=== PATIENT | female | born 1960 | race Asian ===

== ENCOUNTER 2017-08-20 18:12 | Observation (INO) | payer MEDICAID ==
[~2017-08-20] VITALS: Ht 152.4 cm; Wt 72.6 kg
--- NOTE | 2017-08-20 18:11 | Emergency Room Report ---
History of Present Illness General Source: Patient, EMS Present Illness HPI Patient's 56-year-old female brought in by EMS after increased dizziness and syncopal episode. Patient had feeling of lightheadedness. She denied any fever. She stated that she had been having some syncopal episode in the past few days. She stated that she has an appointment to see her primary care physician for similar symptoms. EKG by EMS showed incomplete right bundle branch block. Patient denied any chest pain or shortness of breath. She denied vomiting or diarrhea. She denied any change with standing. Patient had syncopal episodes well at a grocery store. She denied any trauma. Allergies: Coded Allergies: No Known Allergies (Unverified , 08/20/17) Patient History Past Medical History: see triage record Reviewed Nursing Documentation: PMH: Agreed, PSxH: Agreed Review of Systems All Other Systems: negative except mentioned in HPI Physical Exam Sp02 EP Interpretation: reviewed, normal General Appearance: normal inspection, well appearing, no apparent distress, alert, GCS 15, non-toxic Head: atraumatic ENT: normal ENT inspection, hearing grossly normal, normal voice Neck: normal inspection, full range of motion, supple, no bony tend Respiratory: normal inspection, lungs clear, normal breath sounds, no respiratory distress, no retraction, no wheezing Cardiovascular #1: regular rate, rhythm, no edema Gastrointestinal: normal inspection, normal bowel sounds, non tender, soft, no guarding, no hernia Genitourinary: no CVA tenderness Musculoskeletal: normal inspection, back normal, normal range of motion Neurologic: normal inspection, alert, oriented x3, responsive, senior computer specialist III-XII nml as tested, speech normal Psychiatric: normal inspection, judgement/insight normal, mood/affect normal Skin: normal inspection, normal color, no rash Medical Decision Making Diagnostic Impression: Primary Impression: Syncope Additional Impression: Incomplete RBBB ER Course Patient presented for syncope. Differential diagnosis included but was not limited to arrhythmia, orthostatic hypotension, hypovolemia, vasovagal, anemia among others.Because of complexity of patient's case laboratory testing and imaging studies were ordered. EKG interpreted by me showed normal sinus rhythm with a rate of 67 with incomplete right bundle-branch block with prolonged QT interval. Patient is also noted have a left anterior fascicular block. Patient is given IV magnesium as well as IV fluids. Laboratory testing was notable for mild hypokalemia. Patient was given oral potassium. Dr. Richard Ma was contacted for Dr. Rivera for inpatient observation Labs Test 08/20/17 18:24 08/20/17 19:00 White Blood Count 6.0 K/UL (4.8-10.8) Red Blood Count 4.20 M/UL (4.20-5.40) Hemoglobin 13.8 G/DL (12.0-16.0) Hematocrit 39.7 % (37.0-47.0) Mean Corpuscular Volume 94 FL (80-99) Mean Corpuscular Hemoglobin 32.7 PG (27.0-31.0) Mean Corpuscular Hemoglobin Concent 34.6 G/DL (32.0-36.0) Red Cell Distribution Width 10.9 % (11.6-14.8) Platelet Count 259 K/UL (150-450) Mean Platelet Volume 7.4 FL (6.5-10.1) Neutrophils (%) (Auto) 54.7 % (45.0-75.0) Lymphocytes (%) (Auto) 36.1 % (20.0-45.0) Monocytes (%) (Auto) 4.5 % (1.0-10.0) Eosinophils (%) (Auto) 4.0 % (0.0-3.0) Basophils (%) (Auto) 0.8 % (0.0-2.0) Prothrombin Time 9.8 SEC (9.30-11.50) Prothromb Time International Ratio 0.9 (0.9-1.1) Activated Partial Thromboplast Time 25 SEC (23-33) D-Dimer 0.20 mg/L FEU (0.00-0.49) Sodium Level 140 MMOL/L (136-145) Potassium Level 3.4 MMOL/L (3.5-5.1) Chloride Level 105 MMOL/L (98-107) Carbon Dioxide Level 27 MMOL/L (21-32) Anion Gap 8 mmol/L (5-15) Blood Urea Nitrogen 10 mg/dL (7-18) Creatinine 0.7 MG/DL (0.55-1.30) Estimat Glomerular Filtration Rate > 60 mL/min (>60) Glucose Level 110 MG/DL (74-106) Calcium Level 8.8 MG/DL (8.5-10.1) Total Bilirubin 0.3 MG/DL (0.2-1.0) Aspartate Amino Transf (AST/SGOT) 14 U/L (15-37) Alanine Aminotransferase (ALT/SGPT) 23 U/L (12-78) Alkaline Phosphatase 129 U/L (46-116) Total Creatine Kinase 56 U/L (26-308) Creatine Kinase MB < 0.5 NG/ML (0.0-3.6) Creatine Kinase MB Relative Index 0.8 Troponin I 0.000 ng/mL (0.000-0.056) Pro-B-Type Natriuretic Peptide 42 pg/mL (0-125) Total Protein 7.4 G/DL (6.4-8.2) Albumin 3.7 G/DL (3.4-5.0) Globulin 3.7 g/dL Albumin/Globulin Ratio 1.0 (1.0-2.7) Urine Color Pale yellow Urine Appearance Clear Urine pH 6 (4.5-8.0) Urine Specific [place] 1.015 (1.005-1.035) Urine Protein Negative (NEGATIVE) Urine Glucose (UA) Negative (NEGATIVE) Urine Ketones Negative (NEGATIVE) Urine Occult Blood 2+ (NEGATIVE) Urine Nitrite Negative (NEGATIVE) Urine Bilirubin Negative (NEGATIVE) Urine Urobilinogen Normal MG/DL (0.0-1.0) Urine Leukocyte Esterase 1+ (NEGATIVE) Urine RBC 0-2 /HPF (0 - 2) Urine WBC 2-4 /HPF (0 - 2) Urine Squamous Epithelial Cells Few /LPF (NONE/OCC) Urine Bacteria Few /HPF (NONE) Status: unchanged Disposition: PLACE IN OBSERVATION Condition: Saturnino Oneal Aug 20, 2017 18:11
[~2017-08-20 18:12] MED LIST: NKM
[2017-08-20 18:32] VITALS: BP 116/69
[2017-08-20 18:51] LABS: BASOPHILS % (AUTO) 0.8 % (0.0-2.0); HEMATOCRIT 39.7 % (37.0-47.0); HEMOGLOBIN 13.8 G/DL (12.0-16.0); LYMPHOCYTES % (AUTO) 36.1 % (20.0-45.0); MEAN CORPUSCULAR VOLUME 94 FL (80-99); MONOCYTES % (AUTO) 4.5 % (1.0-10.0); NEUTROPHILS % (AUTO) 54.7 % (45.0-75.0); PLATELET COUNT 259 K/UL (150-450); RED CELL DISTRIBUTION WIDTH 10.9 % (11.6-14.8)
[2017-08-20 19:00] LABS: ANION GAP 8 mmol/L (5-15); BLOOD UREA NITROGEN 10 mg/dL (7-18); CALCIUM 8.8 MG/DL (8.5-10.1); CARBON DIOXIDE 27 MMOL/L (21-32); CHLORIDE 105 MMOL/L (98-107); CREATININE 0.7 MG/DL (0.55-1.30); POTASSIUM 3.4 MMOL/L (3.5-5.1); SODIUM 140 MMOL/L (136-145)
[2017-08-20 19:15] LABS: ALANINE AMINOTRANSFERASE 23 U/L (12-78); ALBUMIN 3.7 G/DL (3.4-5.0); ALKALINE PHOSPHATASE 129 U/L (46-116); ASPARTATE AMINO TRANSFERASE 14 U/L (15-37); BILIRUBIN,TOTAL 0.3 MG/DL (0.2-1.0); CKMB < 0.5 NG/ML (0.0-3.6); CREATINE KINASE 56 U/L (26-308)
[2017-08-20] MEDS ORDERED: Sodium Chloride 500ML 500 ML IV ONE (19:15)
[2017-08-20 19:23] LABS: INR 0.9 (0.9-1.1)
[2017-08-20 19:24] LABS: APPEARANCE,URINE CLEAR; BILIRUBIN, URINE NEGATIVE (NEGATIVE); COLOR,URINE PALE YELLOW; GLUCOSE, URINE (UA) NEGATIVE (NEGATIVE); KETONES,URINE NEGATIVE (NEGATIVE); LEUKOCYTE ESTERASE ,URINE 1+ (NEGATIVE); NITRITE,URINE NEGATIVE (NEGATIVE); PH,URINE 6 (4.5-8.0); PROTEIN,URINE NEGATIVE (NEGATIVE); UROBILINOGEN,URINE NORMAL MG/DL (0.0-1.0)
[2017-08-20 19:27] VITALS: BP_SYST 124; BP_SYST 131; BP_SYST 134; BP_DIAS 68; BP_DIAS 74; BP_DIAS 80
[2017-08-20 21:26] VITALS: BP 134/79
[2017-08-20 23:05] VITALS: BP 130/78
[2017-08-20 23:55] VITALS: BP 128/79
[2017-08-21 04:00] VITALS: BP 138/80
[2017-08-21 08:00] VITALS: BP 107/65
[2017-08-21 10:00] LABS: BASOPHILS % (AUTO) 0.8 % (0.0-2.0); EOSINOPHILS % (AUTO) 3.6 % (0.0-3.0); HEMATOCRIT 40.2 % (37.0-47.0); HEMOGLOBIN 13.9 G/DL (12.0-16.0); LYMPHOCYTES % (AUTO) 25.2 % (20.0-45.0); MEAN CORPUSCULAR VOLUME 95 FL (80-99); MONOCYTES % (AUTO) 5.8 % (1.0-10.0); NEUTROPHILS % (AUTO) 64.5 % (45.0-75.0); PLATELET COUNT 258 K/UL (150-450); RED BLOOD COUNT 4.25 M/UL (4.20-5.40); WHITE BLOOD COUNT 6.1 K/UL (4.8-10.8)
--- NOTE | 2017-08-21 10:03 | Diagnostic Imaging Report ---
Indication: Headache Technique: Continuous helical CT scanning of the head was performed without intravenous contrast material. Axial and coronal 5 mm sections were generated. Radiation dose was minimized using automated exposure control Dose: Total Dose Length Product - DLP 1347.[address] Dose Index - CTDIvol(s) 70.38 mGy. Comparison: none Findings: The ventricular system is normal in size and configuration. There is no shift of midline structures. No abnormal extra-axial fluid collections are noted. There is no evidence of intracerebral bleeding. No other abnormal high or low density areas are noted within the brain. There is left ethmoid sinus mucosal disease. The calvarium is intact. The mastoids are clear. Impression: Normal CT scan of the head without contrast material. This agrees with the preliminary interpretation provided overnight by [facility] teleradiology service. The CT scanner at [facility] is accredited by the [place] [employer] and the scans are performed using protocols designed to limit radiation exposure to as low as reasonably achievable to attain images of sufficient resolution adequate for diagnostic evaluation.
[2017-08-21 10:36] LABS: ALANINE AMINOTRANSFERASE 21 U/L (12-78); ALBUMIN 3.5 G/DL (3.4-5.0); ALKALINE PHOSPHATASE 118 U/L (46-116); ANION GAP 5 mmol/L (5-15); ASPARTATE AMINO TRANSFERASE 14 U/L (15-37); BILIRUBIN,DIRECT 0.2 MG/DL (0.0-0.3); BILIRUBIN,TOTAL 0.6 MG/DL (0.2-1.0); BLOOD UREA NITROGEN 9 mg/dL (7-18); CARBON DIOXIDE 28 MMOL/L (21-32); CHLORIDE 108 MMOL/L (98-107); CHOLESTEROL 207 MG/DL (< 200); CREATININE 0.6 MG/DL (0.55-1.30); HDL CHOLESTEROL 52 MG/DL (40-60); SODIUM 141 MMOL/L (136-145); TRIGLYCERIDES 96 MG/DL (30-150)
--- NOTE | 2017-08-21 10:48 | Diagnostic Imaging Report ---
Indication: Shortness of breath Technique: One view of the chest Comparison: none Findings: The heart is borderline enlarged. The left hemidiaphragm is obscured. Lungs and pleural spaces are otherwise clear. The aorta is tortuous and calcified. Impression: Obscured left hemidiaphragm, probably due to overlying soft tissue, but pleural fluid, consolidation, and/or atelectasis at the left lung base not excludable No acute process otherwise Borderline cardiomegaly
[2017-08-21 12:00] VITALS: BP 100/75
--- NOTE | 2017-08-21 14:43 | History and Physical ---
History of Present Illness General Date patient seen: Aug 21, 2017 Time patient seen: 14:43 Reason for Hospitalization: Syncope Present Illness HPI 56y/o female with no sig pmh who presents with syncope. Pt was brought in by EMS after increased dizziness and syncopal episode. Patient had feeling of lightheadedness. She denied any fever. She stated that she had been having some syncopal episode in the past few days. She stated that she has an appointment to see her primary care physician for similar symptoms. EKG by EMS showed incomplete right bundle branch block. Patient denied any chest pain or shortness of breath. She denied vomiting or diarrhea. She denied any change with standing. Patient had syncopal episodes well at a grocery store. She denied any trauma. In ED, CT brain neg. Allergies: Coded Allergies: No Known Allergies (Unverified , 08/20/17) Medication History Scheduled No Known Medications* (NKM - No Known Medications*), 0 ., (Reported) Scheduled PRN Meclizine Hcl (Meclizine Hcl), 25 MG ORAL THREE TIMES A DAY PRN Patient History History Provided By: Patient, Family Member, Medical Record Healthcare decision maker Resuscitation status Advanced Directive on File No Past Medical/Surgical History Past Medical/Surgical History: (1) No significant past medical history Family History Family History: Patient reports no known family medical history. Social History Social History: (1) No significant social history Review of Systems Constitutional: Reports: no symptoms Eye: Reports: no symptoms ENT: Reports: no symptoms Respiratory: Reports: no symptoms Cardiovascular: Reports: no symptoms Gastrointestinal: Reports: no symptoms Genitourinary: Reports: no symptoms Musculoskeletal: Reports: no symptoms Skin: Reports: no symptoms Psychiatric: Reports: no symptoms Neurological: Reports: syncope, dizziness Endocrine: Reports: no symptoms Hematologic/Lymphatic: Reports: no symptoms Physical Exam Physical Exam Narrative General: alert, cooperative, no distress, appears stated age Head: normocephalic, without obvious abnormality, atraumatic Eyes: conjunctivae/corneas clear. PERRL, EOM's intact Throat: lips, mucosa, and tongue normal. MMM Neck: supple, symmetrical, trachea midline, and no JVD Lungs: clear to auscultation bilaterally Heart: regular rate and rhythm, S1, S2 normal, no murmur, click, rub or gallop Abdomen: soft, non-tender, non-distended, bowel sounds normal; no masses or organomegaly Extremities: extremities normal, atraumatic, no cyanosis or edema Pulses: 2+ and symmetric Skin: skin color, texture, turgor normal; no rashes or lesions Neurologic: grossly normal, no focal deficits Last 24 Hour Vital Signs Date Time Temp Pulse Resp B/P (MAP) Pulse Ox O2 Delivery O2 Flow Rate FiO2 08/21/17 12:10 75 08/21/17 12:05 64 08/21/17 12:00 66 08/21/17 12:00 96.7 57 18 100/75 97 Room Air 96.7 08/21/17 12:00 57 08/21/17 08:00 70 08/21/17 08:00 96.8 51 18 107/65 97 Room Air 96.8 08/21/17 04:00 97.3 61 20 138/80 96 Room Air 97.3 08/21/17 04:00 56 08/21/17 01:00 57 08/21/17 00:15 97.8 68 15 128/79 100 Room Air 97.8 08/20/17 23:55 97.8 68 15 128/79 100 Room Air 97.8 08/20/17 23:05 97.7 69 16 130/78 100 Room Air 97.7 08/20/17 21:26 97.8 68 17 134/79 100 Room Air 97.8 08/20/17 19:27 97.9 60 16 131/80 100 Room Air 97.9 08/20/17 19:27 97.9 60 16 131/80 100 Room Air 97.9 58 124/68 61 134/74 08/20/17 18:32 97.8 64 20 116/69 98 Room Air 97.8 08/20/17 18:06 98.2 64 16 124/68 97 Room Air 98.2 Intake and Output 08/20/17 08/21/17 19:00 07:00 Intake Total 600 ml Output Total 0 ml Balance 600 ml Intake IV Total 600 ml Output Urine Total 0 ml # Voids 1 Laboratory Tests Test 08/20/17 18:24 08/20/17 19:00 08/21/17 09:10 White Blood Count 6.0 K/UL (4.8-10.8) 6.1 K/UL (4.8-10.8) Red Blood Count 4.20 M/UL (4.20-5.40) 4.25 M/UL (4.20-5.40) Hemoglobin 13.8 G/DL (12.0-16.0) 13.9 G/DL (12.0-16.0) Hematocrit 39.7 % (37.0-47.0) 40.2 % (37.0-47.0) Mean Corpuscular Volume 94 FL (80-99) 95 FL (80-99) Mean Corpuscular Hemoglobin 32.7 PG (27.0-31.0) H 32.8 PG (27.0-31.0) H Mean Corpuscular Hemoglobin Concent 34.6 G/DL (32.0-36.0) 34.6 G/DL (32.0-36.0) Red Cell Distribution Width 10.9 % (11.6-14.8) L 11.0 % (11.6-14.8) L Platelet Count 259 K/UL (150-450) 258 K/UL (150-450) Mean Platelet Volume 7.4 FL (6.5-10.1) 7.5 FL (6.5-10.1) Neutrophils (%) (Auto) 54.7 % (45.0-75.0) 64.5 % (45.0-75.0) Lymphocytes (%) (Auto) 36.1 % (20.0-45.0) 25.2 % (20.0-45.0) Monocytes (%) (Auto) 4.5 % (1.0-10.0) 5.8 % (1.0-10.0) Eosinophils (%) (Auto) 4.0 % (0.0-3.0) H 3.6 % (0.0-3.0) H Basophils (%) (Auto) 0.8 % (0.0-2.0) 0.8 % (0.0-2.0) Prothrombin Time 9.8 SEC (9.30-11.50) Prothromb Time International Ratio 0.9 (0.9-1.1) Activated Partial Thromboplast Time 25 SEC (23-33) D-Dimer 0.20 mg/L FEU (0.00-0.49) Sodium Level 140 MMOL/L (136-145) 141 MMOL/L (136-145) Potassium Level 3.4 MMOL/L (3.5-5.1) L 4.0 MMOL/L (3.5-5.1) Chloride Level 105 MMOL/L (98-107) 108 MMOL/L (98-107) H Carbon Dioxide Level 27 MMOL/L (21-32) 28 MMOL/L (21-32) Anion Gap 8 mmol/L (5-15) 5 mmol/L (5-15) Blood Urea Nitrogen 10 mg/dL (7-18) 9 mg/dL (7-18) Creatinine 0.7 MG/DL (0.55-1.30) 0.6 MG/DL (0.55-1.30) Estimat Glomerular Filtration Rate > 60 mL/min (>60) > 60 mL/min (>60) Glucose Level 110 MG/DL (74-106) H 114 MG/DL (74-106) H Calcium Level 8.8 MG/DL (8.5-10.1) 9.0 MG/DL (8.5-10.1) Total Bilirubin 0.3 MG/DL (0.2-1.0) 0.6 MG/DL (0.2-1.0) Aspartate Amino Transf (AST/SGOT) 14 U/L (15-37) L 14 U/L (15-37) L Alanine Aminotransferase (ALT/SGPT) 23 U/L (12-78) 21 U/L (12-78) Alkaline Phosphatase 129 U/L (46-116) H 118 U/L (46-116) H Total Creatine Kinase 56 U/L (26-308) Creatine Kinase MB < 0.5 NG/ML (0.0-3.6) Creatine Kinase MB Relative Index 0.8 Troponin I 0.000 ng/mL (0.000-0.056) 0.000 ng/mL (0.000-0.056) Pro-B-Type Natriuretic Peptide 42 pg/mL (0-125) Total Protein 7.4 G/DL (6.4-8.2) 7.0 G/DL (6.4-8.2) Albumin 3.7 G/DL (3.4-5.0) 3.5 G/DL (3.4-5.0) Globulin 3.7 g/dL Albumin/Globulin Ratio 1.0 (1.0-2.7) Urine Color Pale yellow Urine Appearance Clear Urine pH 6 (4.5-8.0) Urine Specific [place] 1.015 (1.005-1.035) Urine Protein Negative (NEGATIVE) Urine Glucose (UA) Negative (NEGATIVE) Urine Ketones Negative (NEGATIVE) Urine Occult Blood 2+ (NEGATIVE) H Urine Nitrite Negative (NEGATIVE) Urine Bilirubin Negative (NEGATIVE) Urine Urobilinogen Normal MG/DL (0.0-1.0) Urine Leukocyte Esterase 1+ (NEGATIVE) H Urine RBC 0-2 /HPF (0 - 2) Urine WBC 2-4 /HPF (0 - 2) Urine Squamous Epithelial Cells Few /LPF (NONE/OCC) Urine Bacteria Few /HPF (NONE) Hemoglobin A1c 6.1 % (4.3-6.0) H Magnesium Level 2.3 MG/DL (1.8-2.4) Direct Bilirubin 0.2 MG/DL (0.0-0.3) Triglycerides Level 96 MG/DL (30-150) Cholesterol Level 207 MG/DL (< 200) H LDL Cholesterol 139 mg/dL (<100) H HDL Cholesterol 52 MG/DL (40-60) Cholesterol/HDL Ratio 4.0 (3.3-4.4) Vitamin B12 Level 493 PG/ML (193-986) Vitamin D 25-Hydroxy Pending 25-Hydroxy Vitamin D2 Pending 25-Hydroxy Vitamin D3 Pending Folate 17.1 NG/ML (8.6-58.9) Thyroid Stimulating Hormone (TSH) 0.685 uiU/mL (0.358-3.740) Height (Feet): 5 Height (Inches): 0.00 Weight (Pounds): 160 Medications Current Medications Medications (Trade) Dose Ordered Sig/Viri Route PRN Reason Start Time Stop Time Status Last Admin Dose Admin Acetaminophen (Tylenol) 650 mg Q4H PRN ORAL Fever/Headache/Mild Pain 08/21/17 10:30 09/20/17 10:29 Dextrose (Dextrose 50%) STAT PRN IV Hypoglycemia 08/21/17 10:30 09/20/17 10:29 Ondansetron HCl (Zofran) 4 mg Q4H PRN IVP Nausea & Vomiting 3/12/18 10:30 09/20/17 10:29 08/21/17 11:50 Assessment/Plan Problem List: (1) Syncope Assessment & Plan: Appears to be vasovagal syncope ICD Codes: R55 - Syncope and collapse SNOMED: 543925377 (2) Benign paroxysmal positional vertigo ICD Codes: H81.10 - Benign paroxysmal vertigo, unspecified ear SNOMED: 102149557 Status: stable Assessment/Plan Admit to tele Trend trop/EKG Check TTE Cardiology consulted Check TSH, B12/folate, vit D Neurology consulted Meclizine PRN Pain control, supportive care Bowel regimen DVT ppx: SCDs, HSQ FULL CODE D/w pt, RN, cardiology, neurology regarding mgmt and dispo Torie Boyce M.D. Aug 21, 2017 14:43
[2017-08-21 16:00] VITALS: BP 101/65
[2017-08-21] MEDS ORDERED: Meclizine 25mg tab ORAL PRN (16:45)
[2017-08-21] MEDS ORDERED: MECLIZINE HCL25 M1 ORAL (16:47)
--- NOTE | 2017-08-21 19:12 | Neurology Progress Note ---
Objective Physical Exam Last Vital Signs Date Time Temp Pulse Resp B/P (MAP) Pulse Ox O2 Delivery O2 Flow Rate FiO2 08/21/17 16:00 98.2 61 19 101/65 96 Room Air 98.2 Laboratory Tests Test 08/21/17 09:10 White Blood Count 6.1 K/UL (4.8-10.8) Red Blood Count 4.25 M/UL (4.20-5.40) Hemoglobin 13.9 G/DL (12.0-16.0) Hematocrit 40.2 % (37.0-47.0) Mean Corpuscular Volume 95 FL (80-99) Mean Corpuscular Hemoglobin 32.8 PG (27.0-31.0) H Mean Corpuscular Hemoglobin Concent 34.6 G/DL (32.0-36.0) Red Cell Distribution Width 11.0 % (11.6-14.8) L Platelet Count 258 K/UL (150-450) Mean Platelet Volume 7.5 FL (6.5-10.1) Neutrophils (%) (Auto) 64.5 % (45.0-75.0) Lymphocytes (%) (Auto) 25.2 % (20.0-45.0) Monocytes (%) (Auto) 5.8 % (1.0-10.0) Eosinophils (%) (Auto) 3.6 % (0.0-3.0) H Basophils (%) (Auto) 0.8 % (0.0-2.0) Sodium Level 141 MMOL/L (136-145) Potassium Level 4.0 MMOL/L (3.5-5.1) Chloride Level 108 MMOL/L (98-107) H Carbon Dioxide Level 28 MMOL/L (21-32) Anion Gap 5 mmol/L (5-15) Blood Urea Nitrogen 9 mg/dL (7-18) Creatinine 0.6 MG/DL (0.55-1.30) Estimat Glomerular Filtration Rate > 60 mL/min (>60) Glucose Level 114 MG/DL (74-106) H Hemoglobin A1c 6.1 % (4.3-6.0) H Calcium Level 9.0 MG/DL (8.5-10.1) Magnesium Level 2.3 MG/DL (1.8-2.4) Total Bilirubin 0.6 MG/DL (0.2-1.0) Direct Bilirubin 0.2 MG/DL (0.0-0.3) Aspartate Amino Transf (AST/SGOT) 14 U/L (15-37) L Alanine Aminotransferase (ALT/SGPT) 21 U/L (12-78) Alkaline Phosphatase 118 U/L (46-116) H Troponin I 0.000 ng/mL (0.000-0.056) Total Protein 7.0 G/DL (6.4-8.2) Albumin 3.5 G/DL (3.4-5.0) Triglycerides Level 96 MG/DL (30-150) Cholesterol Level 207 MG/DL (< 200) H LDL Cholesterol 139 mg/dL (<100) H HDL Cholesterol 52 MG/DL (40-60) Cholesterol/HDL Ratio 4.0 (3.3-4.4) Vitamin B12 Level 493 PG/ML (193-986) Vitamin D 25-Hydroxy Pending 25-Hydroxy Vitamin D2 Pending 25-Hydroxy Vitamin D3 Pending Folate 17.1 NG/ML (8.6-58.9) Thyroid Stimulating Hormone (TSH) 0.685 uiU/mL (0.358-3.740) Impression/Recommendations Problems: (1) Benign paroxysmal positional vertigo Status: stable Recommendations #[id number] YELITZA WARE Aug 21, 2017 19:12
[2017-08-21] MEDS ORDERED: Tubing IV Secondary IV ONE (20:44)
--- NOTE | 2017-08-21 21:45 | Consultation ---
DATE OF CONSULTATION: 08/21/2017 CARDIOLOGY CONSULTATION CONSULTING PHYSICIAN: [place] M.D. REFERRING PHYSICIAN: Radha Daniels M.D. REASON FOR CONSULTATION: Syncope in the setting of right bundle-branch block and marked prolonged QT. HISTORY OF PRESENT ILLNESS: The patient is a 56-year-old lady with history of dizziness and nausea in the past. She is supposed to see a physician for that. Today, the patient's episodes got worse and actually, she had a syncopal episode. Denies any fever or chills. No nausea, vomiting, diaphoresis, or any prior coronary artery disease. Her EKG by paramedics showed incomplete right bundle-branch block. The patient was evaluated and admitted. Cardiology consultation was obtained for further evaluation and management. She underwent an echocardiogram that showed normal left ventricular systolic function and orthostatic vital signs were negative. REVIEW OF SYSTEMS: Review of systems was thoroughly performed and was negative other than what was mentioned in the history of present illness. PAST MEDICAL HISTORY: Lightheadedness and dizziness. MEDICATIONS: Medications at home none. FAMILY HISTORY: Noncontributory. SOCIAL HISTORY: She lives at home. Does not smoke or drink alcohol. PHYSICAL EXAMINATION: VITAL SIGNS: Blood pressure is 100/75, pulse 67, respirations 18, and temperature 96.7. HEAD AND NECK: No JVD. LUNGS: Clear. CARDIOVASCULAR: Regular S1 and S2 with no gallop or murmur. ABDOMEN: Soft. EXTREMITIES: No pitting edema. DIAGNOSTIC DATA: Her EKG showed sinus rhythm with incomplete right bundle-branch block and corrected QT of 460 milliseconds. LABORATORY DATA: Labs show white count of 6.1, hemoglobin 13.9, hematocrit of 40, and platelet count is 258. Sodium 141, potassium 4.0, BUN 9, creatinine 0.6, and glucose of 114. Troponin negative x2. ASSESSMENT AND PLAN: 1. Syncopal episode. The patient has had episodes of lightheadedness and dizziness in the past. Her echocardiogram showed ejection fraction of 70%, no aortic stenosis. On telemetry, the patient does not have any arrhythmia either. Neurology evaluation is pending including carotid Doppler. Her 12-lead EKG also showed corrected QT of 486 milliseconds. 2. Incomplete right bundle-branch block, may be normal for this patient. 3. Mild prolonged QT of 486 milliseconds. Watch the patient on telemetry. The patient has no family member with long QT syndrome Thank you very much, Dr. Daniels, for allowing me to participate in the care of this patient. Please do not hesitate to contact me for any questions regarding my evaluation. Good [place] M.D. DR: Brett JOB#: [id number] CC:
--- NOTE | 2017-08-21 22:45 | Consultation ---
DATE OF CONSULTATION: 08/21/2017 NEUROLOGICAL CONSULTATION CONSULTING PHYSICIAN: Onur Odom M.D. REQUESTING PHYSICIAN: Radha Daniels M.D. HISTORY OF PRESENT ILLNESS: This is a 56-year-old female seen in neurological consultation to evaluate the new onset of acute vertigo followed by syncopal episode. The patient now informs me that in the last two to three months, she had intermittent episodes of lightheadedness, dizziness, and some vertigo sensations. Symptoms progressed in the last week. She developed episodes of vertigo with nausea. On the day of admission, she had acute onset of positional vertigo, following which she lost consciousness and fell down. There was no evidence of tongue biting or urinary or bowel incontinence. No convulsions. No foaming. She was brought to emergency room. Her vital signs were stable. Her EKG, normal sinus rhythm at the rate of 67, incomplete right bundle branch block, prolonged G-tube interval. With this, she was IV magnesium with IV fluids. Laboratory work was obtained revealing normal CBC and normal coagulation panel. Urinalysis is unremarkable. Chemistry panel with potassium 3.4 and glucose 110. Elevated cholesterol 207 and LDL 139. Normal folate, TSH, and B12 levels. Cardiac assessment was obtained revealing no evidence of cardiac abnormalities. Chest x-ray, borderline cardiomegaly. CT scan of the brain was normal with no evidence of intracranial abnormalities. The patient was treated with meclizine, felt much improvement. PAST MEDICAL HISTORY: The patient has no history of medical abnormalities. MEDICATIONS: She is not on any treatment. SOCIAL HISTORY: She lives with her family. She works in a sales. No alcohol. No drug abuse. Nonsmoker. FAMILY HISTORY: Noncontributory. REVIEW OF SYMPTOMS: At this time, the patient is feeling well. Minor dizziness when getting up and ambulating. Denies nausea or vomiting. No chest pain. No palpitations. No respiratory problems. Denies abdominal pain or discomfort. No urine or bowel incontinence. PHYSICAL EXAMINATION: GENERAL: This is a well-developed and well-nourished female, not in acute distress. Family members at the bedside helping with translation as well. VITAL SIGNS: Heart rate of 58. She is afebrile. Blood pressure 101/65. HEENT: Head, normocephalic. There is no evidence of trauma. Eyes, ears, and throat are clear. NECK: Supple. No meningeal signs. MUSCULOSKELETAL EXAMINATION: Unremarkable. There is no deformities. Peripheral pulses 1+ and symmetric. MENTAL STATUS: The patient is alert and oriented x3. Speech is fluent. Language intact. No aphasia. No apraxia. Cognitive function normal. CRANIAL NERVES II: Pupils both responding to light and accommodation. Extraocular movements intact. No nystagmus. CRANIAL NERVES V: Normal corneal responses. CRANIAL NERVES VII: No facial asymmetry. CRANIAL NERVE VIII: Normal hearing. No positional vertigo noted. CRANIAL NERVES IX THROUGH XII: Within normal limits. MOTOR EXAMINATION: Normal muscle tone and strength. 5/5 in all extremities. No involuntary movement. Deep tendon reflexes 1+ and symmetric with downgoing toes on both sides. SENSORY EXAM: Normal to pinprick and light touch. GAIT: Slow, but stable. IMPRESSION: 1. Benign positional vertigo, recurrent. 2. Syncopal episode, vasovagal. DISCUSSION: The patient has normal nonfocal neurological examination presenting subjectively with positional vertigo. No evidence of cerebellar abnormalities. No focal neurological deficit noted. CAT scan of the brain revealed no intracranial abnormalities. No evidence of mastoid area abnormality. The patient will continue treatment with meclizine 12.5 mg q.i.d. p.r.n. and p.o. hydration. The patient will be discharged today home, but advised if symptoms persist to be seen by ENT evaluation to get a nystagmogram. Thank you for allowing me to see this interesting patient in neurological consultation. Onur Odom M.D. DR: NASIM JOB#: [id number] CC:
--- NOTE | 2017-08-24 21:23 | Cardiology Report ---
APPROVED REPORT EXAM: Two-dimensional and M-mode echocardiogram with Doppler and color Doppler. INDICATION Syncope M-Mode DIMENSIONS IVSd1.3 (0.7-1.1cm)Left Atrium (MM)3.5 (1.6-4.0cm) LVDd5.1 (3.5-5.6cm)Aortic Root3.3 (2.0-3.7cm) PWd1.1 (0.7-1.1cm)Aortic Cusp Exc.1.8 (1.5-2.0cm) IVSs1.9 cm Normal left ventricular chamber size, systolic function and wall motion. Left ventricular ejection fraction estimated to be 70%. No evidence of left ventricular hypertrophy . No evidence of pericardial effusion. Right cardiac chamber sizes are within normal limits. Focal aortic valve sclerosis with adequate cusp excursion. Mildly Thickened mitral valve leaflets with normal excursion. Mildly Mitral annulus and aortic root calcification. Normal Pulmonic valve structure . Normal tricuspid valve structure. IVC at normal size with physiological collapse . A color flow and spectral Doppler study was performed and revealed: No aortic regurgitation. Mild mitral regurgitation. Mitral diastolic velocities suggest reduced left ventricular relaxation c/w mild LV diastolic dysfunction (Grade I ) Mild tricuspid regurgitation. Tricuspid systolic velocities suggests peak right ventricular systolic pressure of 34 mmHg ,consistent with mild pulmonary hypertension Trace to mild Pulmonic regurgitation present.
--- NOTE | 2017-08-24 21:34 | Cardiology Report ---
APPROVED REPORT EKG Measurement Heart [id number] AL [id number] Normal sinus rhythm Incomplete right bundle branch block Prolonged QT Abnormal ECG
== END 2017-08-21 20:45 | disposition home or self-care (01) ==
LOC: EDBD 18:12 → EMR 18:43 → EDBEDREQ 19:05 → 2E 19:30 → EDBEDREQ 20:29
DX: R55 Syncope and collapse (principal); H81.10 Benign paroxysmal vertigo, unspecified ear; I45.10 Unspecified right bundle-branch block; E78.00 Pure hypercholesterolemia, unspecified; I44.4 Left anterior fascicular block
CPT/HCPCS: 36415; 70450; 71045; 80048; 80053; 80061; 80076; 81003; 82306; 82550; 82553; 82607; 82746; 82962; 83036; 83735; 83880; 84443; 84484; 85025; 85379; 85610; 85730; 93005; 93306; 96374; 99285; G0378; J2405; J7040; J8499